=== PATIENT | female | born 1995 | race Caucasian/White ===

== ENCOUNTER 2021-01-21 15:30 | Inpatient (IN) | payer OTHER ==
[2021-01-21] MEDS ORDERED: Lidocaine 1% (PF) 30 ML VIAL SC PRN (15:48)
[2021-01-21] MEDS ORDERED: Acetaminophen 500 MG TAB PO PRN (15:48)
[2021-01-21] MEDS ORDERED: Misoprostol 200 MCG TAB PR PRN (15:48)
[2021-01-21] MEDS ORDERED: hydrALAZINE 20 MG/ML VIAL SLOW IVP PRN (15:48)
[2021-01-21] MEDS ORDERED: Docusate 100 MG CAP PO PRN (15:48)
[2021-01-21] MEDS ORDERED: HYDROcodone/Acetaminophen 5/325 mg Tablet PO PRN ×2 (15:48)
[2021-01-21] MEDS ORDERED: Ondansetron PF 4 MG/2 ML Vial IVP PRN ×2 (15:48→20:57)
[2021-01-21] MEDS ORDERED: Butorphanol Tartrate 1 MG/ML VIAL SLOW IVP PRN (15:48)
[2021-01-21] MEDS ORDERED: Diphenoxylate HCl/Atropine Tablet PO PRN ×2 (15:48)
[2021-01-21] MEDS ORDERED: Ibuprofen 800 MG TAB PO PRN (15:48)
[2021-01-21] MEDS ORDERED: Promethazine HCl 25 MG/ML VIAL IM PRN ×2 (15:48→20:57)
[2021-01-21] MEDS ORDERED: NS w/ Oxytocin 30 units 500 ML IV SCH ×2 (16:00)
[2021-01-21] MEDS ORDERED: NS w/ Oxytocin 30 units 500 ML IVPB SCH (16:00)
[2021-01-21 16:02] VITALS: BMI 27.9
[2021-01-21] MEDS: Lactated Ringer's 1,000 ML IV SCH (17:25)
[2021-01-21] MEDS: Ampicillin 2 GM in Sodium Chloride 0.9% 100 ML IVPB SCH ×2 (17:25→23:58)
[2021-01-21 17:39] LABS: Hemoglobin 9.7 g/dL (12.0-15.5); Mean Corpuscular Hemoglobin 27.1 pg (27.0-33.0); Mean Corpuscular Volume 84.6 fl (81.6-98.3); Mean Platelet Volume 11.6 fl (7.4-10.4); Platelet Count 220 10x3/uL (150-450); RBC Distribution Width 13.2 % (11.5-14.5); Red Blood Cell (RBC) Count 3.58 10x6/uL (3.90-5.03)
[2021-01-21] MEDS ORDERED: Calcium Carbonate 500 MG ChewTAB PO PRN (17:45)
[2021-01-21 18:22] LABS: HIV (1/2) Antibody/Antigen Non-Reactive (NonReactive); HIV 1/2 INDEX 0.07 S/CO (<1.00); Hep B Surf Ag Non-Reactive S/CO (NonReactive); Syphilis Antibody Nonreactive (Nonreactive); Syphilis Antibody Index 0.13 S/CO (<1.00 Non-Reactive)
[2021-01-21 18:27] LABS: HBSAg Index 0.19 S/CO (0-0.99)
[2021-01-21] MEDS ORDERED: Fentanyl 2 mcg/Bup 0.1% Cadd 100 ML ONE (19:21)
[2021-01-21] MEDS ORDERED: Naloxone HCl 0.4 mg/ml Vial IVP PRN ×2 (20:57)
[2021-01-21] MEDS ORDERED: Lactated Ringer's 500 ML IV PRN (20:57)
[2021-01-21] MEDS ORDERED: ePHEDrine Sulfate 50 MG/10 ML VIAL SLOW IVP PRN (20:57)
[2021-01-21] MEDS ORDERED: Acetaminophen 325 MG TAB PO PRN (20:57)
[2021-01-21] MEDS ORDERED: Hydrocerin (Eucerin) Cream 120 gm Jar TOP PRN (20:57)
[2021-01-21] MEDS ORDERED: diphenhydrAMINE 50 MG/ML VIAL IVP PRN (20:57)
[2021-01-21] MEDS ORDERED: Communication Order-Pharmacy FS SCH (21:00)
[2021-01-21] MEDS ORDERED: Fentanyl 2 mcg/Bupivacaine 0.1% Cassette 100 ML EPIDURAL SCH (21:00)
[2021-01-22 01:55] LABS: SARS-CoV-2 NAA Rapid Test Not Detected (NotDetected)
[2021-01-22] MEDS ORDERED: Fentanyl 2 mcg/Bup 0.1% Cadd 100 ML ONE (09:01)
[2021-01-22] MEDS ORDERED: Misoprostol 200 MCG TAB VAG PRN (13:40)
[2021-01-22] MEDS ORDERED: Benzocaine-Menthol 82.5 ML CAN TOP PRN (13:40)
[2021-01-22] MEDS ORDERED: Preparation H Ointment 28 GM TUBE PR PRN (13:40)
[2021-01-22] MEDS ORDERED: Ondansetron PF 4 MG/2 ML Vial IVP PRN (13:40)
[2021-01-22] MEDS ORDERED: Acetaminophen/Codeine 30-300mg Tablet PO PRN ×2 (13:40)
[2021-01-22] MEDS ORDERED: Milk Of Magnesia 30 ML UDCUP PO PRN (13:40)
[2021-01-22] MEDS ORDERED: Lanolin Ointment 7 GM TUBE TOP PRN (13:40)
[2021-01-22] MEDS ORDERED: Boostrix 0.5 ML (Tdap) VIAL IM ONE (13:40)
[2021-01-22] MEDS ORDERED: Bisacodyl 10 MG SUPP PR PRN (13:40)
[2021-01-22] MEDS ORDERED: Zolpidem Tartrate 5 MG TAB PO PRN (13:40)
[2021-01-22] MEDS ORDERED: diphenhydrAMINE 25 MG CAP PO PRN (13:40)
[2021-01-22] MEDS ORDERED: hydrALAZINE 20 MG/ML VIAL SLOW IVP PRN (13:40)
[2021-01-22] MEDS ORDERED: Witch Hazel-Glycerin 1 EACH JAR TOP PRN (13:42)
[2021-01-22] MEDS ORDERED: NS w/ Oxytocin 30 units 500 ML IV SCH (13:45)
[2021-01-22] MEDS ORDERED: NS w/ Oxytocin 30 units 500 ML ONE (16:13)
[2021-01-22] MEDS: Ibuprofen 800 MG TAB PO SCH (16:41)
[2021-01-22] MEDS: Ferrous Sulfate 325 MG TAB PO SCH (21:00)
[2021-01-23] MEDS: Docusate Calcium (SURFAK) 240 MG CAP PO SCH ×3 (01:22→21:09)
[2021-01-23] MEDS: Ibuprofen 800 MG TAB PO SCH ×4 (01:23→21:09)
[2021-01-23] MEDS: Ampicillin 2 GM in Sodium Chloride 0.9% 100 ML IVPB SCH (07:44)
[2021-01-23] MEDS: Lactated Ringer's 1,000 ML IV SCH (07:44)
[2021-01-23] MEDS: Prenatal Vitamin 1 TAB PO SCH (08:31)
[2021-01-23] MEDS: Ferrous Sulfate 325 MG TAB PO SCH ×2 (08:31→17:21)
[2021-01-24] MEDS: Ibuprofen 800 MG TAB PO SCH (05:06)
[2021-01-24 07:52] VITALS: BP 129/69; TEMP 98.1
[2021-01-24] MEDS: Prenatal Vitamin 1 TAB PO SCH (10:10)
[2021-01-24] MEDS: Ferrous Sulfate 325 MG TAB PO SCH (10:10)
[2021-01-24] MEDS: Docusate Calcium (SURFAK) 240 MG CAP PO SCH (10:10)
== END 2021-01-24 11:50 | disposition home or self-care (01) | DRG 807 ==
LOC: CSHLD/OP 15:30 → CSHLD 15:31 → CSHPP 01-22 15:32
PROVIDERS: ADMIT Obstetrics & Gynecology; ATTEND Obstetrics & Gynecology
PROC: 10E0XZZ Delivery of Products of Conception, External Approach (ICD-10-PCS; principal; 2021-01-22)
PROC: 0KQM0ZZ Repair Perineum Muscle, Open Approach (ICD-10-PCS; 2021-01-22)
DX: O64.0XX0 Obstructed labor due to incomplete rotation of fetal head, not applicable or unspecified (principal); Z37.0 Single live birth; Z3A.38 38 weeks gestation of pregnancy; Z20.822 Contact with and (suspected) exposure to COVID-19; O99.284 Endocrine, nutritional and metabolic diseases complicating childbirth; E28.2 Polycystic ovarian syndrome; O99.02 Anemia complicating childbirth; D64.9 Anemia, unspecified; O70.1 Second degree perineal laceration during delivery
CPT/HCPCS: 36415; 85027; 86780; 86850; 86900; 86901; 87340; 87389; J0290; J2405; J2590; J3490; U0002